=== PATIENT | male | born 1960 | race Caucasian/White ===

== ENCOUNTER 2016-11-17 05:47 | Inpatient (IN) | payer OTHER ==
[2016-11-17] VITALS (117 sets, daily range): BP systolic 111–138; BP diastolic 61–86; PULSE 71–100; TEMP 98.4–100.5; O2SAT 85–100
[~2016-11-17] VITALS: Ht 180.3 cm; Wt 118.4 kg
[~2016-11-17 05:47] MED LIST: ALLOPURINOL100 MG PO; ASPIRIN E.C. 8181 MG PO; CARAFATE 1GM1 G PO; COLACE 100100 MG/CAP PO; CRESTOR20 MG PO; DEXILANT60 MG PO; EFFIENT10 MG PO; LEVAQUIN 5500 MG/TA1 PO; LIP PO; LIPITOR 80MG80 MG PO; LOPRESSOR 225 MG/TAB PO; LOPRESSOR 550 MG/TAB PO; METOPROLOL TART25 MG PO; METOPROLOL25 MG PO; NIACIN250 MG PO; NORCO 325 MG-51 TAB PO; PERCOCET 325 MG1 TA2 PO; PERCOCET 325 MG1 TAB PO; PLAVIX300 MG PO; PREVACID 30MG30 M1 PO; PRINIVIL5 MG PO; PYRIDIUM200 M1 PO; RANEXA1000 MG PO; SIMVASTATIN40 MG PO; TORADOL 10MG TA10 MG PO; UNABLE; ZANTAC 150150 MG PO; ZOFRAN 4MG T4 MG/TAB PO; ZOFRAN ODT4 MG PO; ZYLOPRIM 100MG100 MG PO; [UNRECOGNIZED DRUG - OTHER]
[2016-11-17 06:24] LABS: HEMATOCRIT 40.4 % (42.0-52.0); HEMOGLOBIN 13.8 g/dl (13.5-18.0); MEAN CELL VOLUME 93 fl (80.0-100.0); MEAN CORPUSCULAR HEMOGLOBIN 32 pg (27.0-31.0); MEAN CORPUSCULAR HGB CONC 34 g/dl (33.0-37.0); MEAN PLATELET VOLUME 9.3 fl (7.4-10.4); PLATELET COUNT 184 K/mm3 (130-400); RED BLOOD COUNT 4.34 M/mm3 (4.20-5.60); REDCELL DISTRIBUTION WIDTH-CV 13.8 % (11.5-14.5); WHITE BLOOD COUNT 4.2 K/mm3 (4.8-10.8)
[2016-11-17 06:27] LABS: ADD PATHOLOGY DIFF REVIEW NO
[2016-11-17] MEDS ORDERED: CIPRO 500MG TA500 MG PO (06:32)
[2016-11-17] MEDS ORDERED: LOTRIMIN45CR TOP (06:36)
[2016-11-17] MEDS ORDERED: VOLTAREN GEL 1%1 TU TP (06:36)
[2016-11-17] MEDS ORDERED: BACTROBAN22 TOP (06:38)
[2016-11-17 06:47] LABS: ADJUSTED CALCIUM 9.1 mg/dL (8.4-10.2); ALANINE AMINOTRANSFERASE 45 U/L (21-72); ALBUMIN 4.2 gm/dL (3.5-5.0); ALKALINE PHOSPHATASE 64 U/L (50-136); ANION GAP 13 mmol/L (7-16); BILIRUBIN,TOTAL 0.7 mg/dL (0.0-1.0); BLOOD UREA NITROGEN 22 mg/dL (9-20); C-REACTIVE PROTEIN 1.6 mg/dL (0.0-0.9); CALCIUM 9.3 mg/dL (8.4-10.2); CARBON DIOXIDE 20 mmol/L (22-30); CHLORIDE 104 mmol/L (98-107); CREATININE, serum 1.21 mg/dL (0.66-1.25); GLUCOSE 107 mg/dL (74-106); LIPASE 99 U/L (23-300); POTASSIUM 3.9 mmol/L (3.4-5.0); SODIUM 138 mmol/L (137-145); TOTAL PROTEIN 7.5 gm/dL (6.4-8.2)
[2016-11-17 06:56] LABS: B-TYPE NATRIURETIC PEPTIDE 151 pg/mL (0-125); TROPONIN-I < 0.012 ng/mL (0.000-0.034)
[2016-11-17 07:36] LABS: BAND 7 % (0-10); NEUTROPHILS 72 % (42.0-75.2); PLATELET ESTIMATE NORMAL (NORMAL); TOTAL CELLS COUNTED 100
[2016-11-17 07:41] LABS: PH 5 (5-8); SQUAMOUS EPITHELIAL 0-2 /hpf; URINE APPEARANCE Clear; URINE BACTERIA Occasional /hpf; URINE BILIRUBIN Negative (NEGATIVE); URINE BLOOD Negative (NEGATIVE); URINE COLOR Amber; URINE GLUCOSE Negative (NEGATIVE); URINE KETONE Negative (NEGATIVE); URINE UROBILINOGEN Negative (NEGATIVE)
[2016-11-17 07:44] LABS: URINE WBC >50 /hpf
[2016-11-17 08:18] LABS: ERYTHROCYTE SEDIMENTATION RATE 11 mm/hr (0-30)
[2016-11-18 00:31] VITALS: BP 109/62; PULSE 73
[2016-11-18 02:58] VITALS: BP 95/46; PULSE 73; TEMP 98.9
[2016-11-18 08:38] VITALS: BP 116/75; PULSE 71; TEMP 98.3
[2016-11-18 12:12] VITALS: BP 125/77; PULSE 71; TEMP 98
[2016-11-18] MEDS ORDERED: BACTRIM DS 8001 TAB PO (12:51)
[2016-11-18] MEDS ORDERED: LIPITOR 80MG80 MG PO (12:52)
== END 2016-11-18 14:01 | disposition home or self-care (01) | DRG 281 ==
LOC: COL.ER 05:47 → MEDICAL 09:51 → EDBEDREQTM 09:58 → EDBEDREQ 09:58 → ICU 17:31 → MEDICAL 20:42
PROVIDERS: Emergency Medicine
PROC: B2111ZZ Fluoroscopy of Multiple Coronary Arteries using Low Osmolar Contrast (ICD-10-PCS; principal; 2016-11-17)
PROC: B2151ZZ Fluoroscopy of Left Heart using Low Osmolar Contrast (ICD-10-PCS; 2016-11-17)
DX: I21.4 Non-ST elevation (NSTEMI) myocardial infarction (principal); N39.0 Urinary tract infection, site not specified; I25.10 Atherosclerotic heart disease of native coronary artery without angina pectoris; Z95.5 Presence of coronary angioplasty implant and graft; Z85.828 Personal history of other malignant neoplasm of skin; I10 Essential (primary) hypertension
CPT/HCPCS: 99223-AI; 99239; C1725; C1760; C1769; C1874; C1887; J0583; J0696; J1650; J2250; J2270; J2405; J3010; J7030; Q9967

== ENCOUNTER 2018-04-23 20:55 | Emergency (ER) | payer SELFPAY ==
[~2018-04-23] VITALS: Ht 180.3 cm; Wt 109.1 kg
[~2018-04-23 20:55] MED LIST changes: +BACTRIM DS 8001 TAB PO; +BACTROBAN22 TOP; +CIPRO 500MG TA500 MG PO; +LOTRIMIN45CR TOP; +VOLTAREN GEL 1%1 TU TP
[2018-04-23 21:01] VITALS: TEMP 97.8
[2018-04-23 21:44] VITALS: BP 136/77; PULSE 88
[2018-04-23 22:52] LABS: TRICYCLIC ANTIDEPRESS URINE NEGATIVE
== END 2018-04-23 21:59 | disposition home or self-care (01) ==
LOC: COL.ER 20:55
PROVIDERS: Emergency Medicine
DX: Z04.1 Encounter for examination and observation following transport accident (principal); Z79.82 Long term (current) use of aspirin

== ENCOUNTER 2018-07-18 20:40 | Inpatient (IN) | payer OTHER ==
[~2018-07-18] VITALS: Ht 180.3 cm; Wt 111.4 kg
[2018-07-19] VITALS (28 sets, daily range): BP systolic 117; BP diastolic 81; PULSE 69; O2SAT 93–98
--- NOTE | 2018-07-19 15:29 | NUR ---
SW met with the patient to discuss discharge plan. The patient lives in [place] with his , Cassidy. He reports independence with ADLs and does not use any DME. The patient's PCP is Dr. Kailee Garvin and he receives his medications either from the [facility] or by [facility] mail order. He reports no difficulties obtaining his meds. The patient does not have advanced directives and he was not interested in completing them at this time. The patient plans to return home with his upon discharge. No additional needs at this time.
[2018-07-19 16:16] LABS: BASO % 0.4 % (0.0-2.0); EOS # 0.2 (0.0-0.7); EOS % 2.9 % (0-4.0); GRAN # 3.7 (1.4-6.5); GRAN % 51.2 % (42.2-75.2); HEMATOCRIT 42.4 % (42.0-52.0); HEMOGLOBIN 14.4 g/dl (13.5-18.0); LYMPH # 2.3 (1.2-3.4); MEAN CELL VOLUME 94 fl (80.0-100.0); MEAN CORPUSCULAR HEMOGLOBIN 32 pg (27.0-31.0); MEAN CORPUSCULAR HGB CONC 34 g/dl (33.0-37.0); PLATELET COUNT 223 K/mm3 (130-400); RED BLOOD COUNT 4.53 M/mm3 (4.20-5.60); REDCELL DISTRIBUTION WIDTH-CV 13.2 % (11.5-14.5)
[2018-07-19 16:16] LABS: BASO % 0.3 % (0.0-2.0); EOS # 0.2 (0.0-0.7); EOS % 2.3 % (0-4.0); GRAN # 5.9 (1.4-6.5); GRAN % 66.3 % (42.2-75.2); HEMATOCRIT 47.2 % (42.0-52.0); HEMOGLOBIN 16.1 g/dl (13.5-18.0); LYMPH # 1.7 (1.2-3.4); LYMPH % 18.7 % (20.0-51.0); MEAN CELL VOLUME 95 fl (80.0-100.0); MEAN CORPUSCULAR HEMOGLOBIN 32 pg (27.0-31.0); MEAN CORPUSCULAR HGB CONC 34 g/dl (33.0-37.0); MEAN PLATELET VOLUME 9.3 fl (7.4-10.4); MONO % 11.8 % (1.7-9.3); PLATELET COUNT 233 K/mm3 (130-400); RED BLOOD COUNT 4.97 M/mm3 (4.20-5.60)
[2018-07-19 16:58] LABS: CALCIUM 9.3 mg/dL (8.4-10.2); CHOLESTEROL RISK RATIO 5.8; CREATININE, serum 1.11 mg/dL (0.66-1.25)
[2018-07-19 16:59] LABS: TROPONIN-I 6 HR POST INITIAL 0.045 ng/mL (0.000-0.034)
[2018-07-19 17:00] LABS: ALBUMIN 4.5 gm/dL (3.5-5.0); BILIRUBIN,TOTAL 0.6 mg/dL (0.0-1.0); CALCIUM 9.8 mg/dL (8.4-10.2); CREATININE, serum 1.31 mg/dL (0.66-1.25); TOTAL PROTEIN 8.6 gm/dL (6.4-8.2); TROPONIN-I 0.062 ng/mL (0.000-0.035)
[2018-07-20] MEDS ORDERED: TYLENOL 325MG325 MG PO (17:10)
[2018-07-20] MEDS ORDERED: PRIL40 PO (17:11)
== END 2018-07-19 14:50 | disposition home or self-care (01) | DRG 282 ==
LOC: COL.ER 20:40 → ICU 07-19 02:50
PROVIDERS: Emergency Medicine
PROC: 4A023N7 Measurement of Cardiac Sampling and Pressure, Left Heart, Percutaneous Approach (ICD-10-PCS; principal; 2018-07-19)
PROC: B2111ZZ Fluoroscopy of Multiple Coronary Arteries using Low Osmolar Contrast (ICD-10-PCS; principal; 2018-07-19)
PROC: B2151ZZ Fluoroscopy of Left Heart using Low Osmolar Contrast (ICD-10-PCS; 2018-07-19)
DX: I21.4 Non-ST elevation (NSTEMI) myocardial infarction (principal); I25.119 Atherosclerotic heart disease of native coronary artery with unspecified angina pectoris; I10 Essential (primary) hypertension; Z95.5 Presence of coronary angioplasty implant and graft; E78.5 Hyperlipidemia, unspecified; K21.9 Gastro-esophageal reflux disease without esophagitis; Z88.8 Allergy status to other drugs, medicaments and biological substances; Z82.49 Family history of ischemic heart disease and other diseases of the circulatory system; J06.9 Acute upper respiratory infection, unspecified
CPT/HCPCS: C1760; C1894

== ENCOUNTER 2018-08-16 08:34 | Day surgery (SDC) | payer OTHER ==
[~2018-08-16] VITALS: Ht 180.3 cm; Wt 107.4 kg
[2018-08-16] VITALS (10 sets, daily range): BP systolic 103–137; BP diastolic 68–98; PULSE 62–73
[~2018-08-16 08:34] MED LIST changes: +PRIL40 PO; +TYLENOL 325MG325 MG PO
[2018-08-16] MEDS ORDERED: NEXIUM 40MG40 MG PO (09:01)
[2018-08-16] MEDS ORDERED: XARELTO20 MG PO (09:02)
[2018-08-16 10:10] LABS: HEMATOCRIT 40.4 % (42.0-52.0); HEMOGLOBIN 13.8 g/dl (13.5-18.0); MEAN CELL VOLUME 94 fl (80.0-100.0); MEAN CORPUSCULAR HEMOGLOBIN 32 pg (27.0-31.0); MEAN CORPUSCULAR HGB CONC 34 g/dl (33.0-37.0); MEAN PLATELET VOLUME 9.1 fl (7.4-10.4); PLATELET COUNT 186 K/mm3 (130-400); RED BLOOD COUNT 4.29 M/mm3 (4.20-5.60); REDCELL DISTRIBUTION WIDTH-CV 13.1 % (11.5-14.5)
[2018-08-16 10:18] LABS: INR 1.1 (0.8-3.0); PROTHROMBIN TIME 12.6 SECONDS (9.7-12.8)
[2018-08-16 10:29] LABS: CALCIUM 9.2 mg/dL (8.4-10.2); CREATININE, serum 1.2 (0.66-1.25); POTASSIUM 4.3 mmol/L (3.4-5.0)
--- NOTE | 2018-08-16 10:51 | NUR ---
ALL SEDATION MEDICATIONS WILL BE GIVEN DURING PROCEDURE WITH VERBAL ORDER FROM MD. SEE MERGE REPORT FOR FENCE ERECTOR SUPERVISOR TIME. SEE MERGE FOR RASS AND MODERATE SEDATION ASSESSMENTS DURING AND POST PROCEDURE.
--- NOTE | 2018-08-16 11:35 | NUR ---
PT BACK TO ROOM 11 POST CARDIAC CATH. VSS AND AX0X3. LEFT FEMORAL SITE C/D/I AND SOFT ON PALPATION. ANGIO-SEAL PLACED. PULSES READILY PALPABLE. PT DENIES PAIN AT THIS TIME. RESTING COMFORTABLY IN BED.
--- NOTE | 2018-08-16 14:03 | NUR ---
PT LEFT FEMORAL SITE REMAINED C/D/I POST CARDIAC CATH. VSS AND AMBULATED TWICE AROUND NURSES STATION WITHOUT ISSUE. TOLERATING FLUIDS PO AND VOIDED ONCE. 20G REMOVED FROM RIGHT HAND AND DISCHARGE INSTRUCTIONS REVIEWED AND SIGNED. PT WHEELED OUT SAFELY BY STAFF TO ER ENTRANCE WHERE RIDE WAS WAITING TO PICK HIM UP.
== END 2018-08-16 14:03 | disposition home or self-care (01) ==
LOC: COL.CAR 08:34
PROVIDERS: Internal Medicine Interventional Cardiology
DX: I25.10 Atherosclerotic heart disease of native coronary artery without angina pectoris (principal); E78.5 Hyperlipidemia, unspecified; T82.867A Thrombosis due to cardiac prosthetic devices, implants and grafts, initial encounter; I87.2 Venous insufficiency (chronic) (peripheral); R60.0 Localized edema; M79.605 Pain in left leg; M79.604 Pain in right leg; Z95.5 Presence of coronary angioplasty implant and graft; Z79.01 Long term (current) use of anticoagulants; Z79.82 Long term (current) use of aspirin; Z82.49 Family history of ischemic heart disease and other diseases of the circulatory system; Z88.4 Allergy status to anesthetic agent
CPT/HCPCS: C1760; C1894; J1644; J2250; J3010; Q9967

== ENCOUNTER → 2019-07-07 | Outpatient (CLI) | payer OTHER ==
[~2019-07-07] MED LIST changes: +NEXIUM 40MG40 MG PO; +XARELTO20 MG PO
== END ==
LOC: COL.RAD 07-02 12:45
DX: R19.09 Other intra-abdominal and pelvic swelling, mass and lump (principal); R59.0 Localized enlarged lymph nodes

== ENCOUNTER 2019-11-07 03:33 | Observation (INO) | payer OTHER ==
[2019-11-07] VITALS (10 sets, daily range): BP systolic 100–142; BP diastolic 47–91; PULSE 59–67; TEMP 97.4–98.4
[~2019-11-07] VITALS: Ht 180.3 cm; Wt 113.0 kg
[2019-11-07 04:20] LABS: BASO % 0.4 % (0.0-2.0); EOS # 0.2 (0.0-0.7); EOS % 3.6 % (0-4.0); GRAN % 53.8 % (42.2-75.2); HEMATOCRIT 40.6 % (42.0-52.0); HEMOGLOBIN 13.6 g/dl (13.5-18.0); LYMPH # 1.8 (1.2-3.4); LYMPH % 32.2 % (20.0-51.0); MEAN CELL VOLUME 97 fl (80.0-100.0); MEAN CORPUSCULAR HEMOGLOBIN 33 pg (27.0-31.0); MEAN CORPUSCULAR HGB CONC 34 g/dl (33.0-37.0); MEAN PLATELET VOLUME 9.4 fl (7.4-10.4); MONO # 0.5 (0.1-0.6); MONO % 9.5 % (1.7-9.3); PLATELET COUNT 213 K/mm3 (130-400); RED BLOOD COUNT 4.18 M/mm3 (4.20-5.60); REDCELL DISTRIBUTION WIDTH-CV 13.4 % (11.5-14.5)
[2019-11-07 04:29] LABS: BILIRUBIN,TOTAL 0.7 mg/dL (0.0-1.0); CALCIUM 9.3 mg/dL (8.4-10.2); CREATININE, serum 1.25 (0.66-1.25); POTASSIUM 3.5 mmol/L (3.4-5.0); TOTAL PROTEIN 7.3 gm/dL (6.4-8.2)
[2019-11-07] MEDS ORDERED: XARELTO2.5 MG PO (05:59)
--- NOTE | 2019-11-07 06:10 | NUR ---
ARRIVES TO FLOOR FROM ED PER W/C. IS ALERT AND ORIENTED X4.
--- NOTE | 2019-11-07 06:23 | NUR ---
PT ARRIVED TO THE FLOOR VIA WHEELCHAIR. PT STATED HE IS HAVING SOME PAIN BUT IT'S BETTER THAN IT WAS. PT HAS HIS CALL LIGHT WITHIN REACH AND HAS NO OTHER CONCERNS AT THIS TIME.
[2019-11-07 06:49] LABS: COLLECTION METHOD CLEAN CATCH
[2019-11-07 07:04] LABS: MUCOUS Present /lpf; PH 5 (5-8); SQUAMOUS EPITHELIAL 0-2 /hpf; URINE APPEARANCE Cloudy; URINE BACTERIA None Seen /hpf; URINE BILIRUBIN Negative (NEGATIVE); URINE BLOOD 3+ (NEGATIVE); URINE COLOR Amber; URINE GLUCOSE Negative (NEGATIVE); URINE KETONE Negative (NEGATIVE); URINE LEUKOCYTE ESTERASE Negative (NEGATIVE); URINE NITRATE Negative (NEGATIVE); URINE PROTEIN(semi-quant) 1+ (NEGATIVE); URINE RBC >50 /hpf; URINE UROBILINOGEN Negative (NEGATIVE)
--- NOTE | 2019-11-07 09:00 | NUR ---
Patient wanting to rest this am. Dr. Mahajan rounded. Consent obtained.
--- NOTE | 2019-11-07 09:24 | NUR ---
Solar Tech met with patient to discuss discharge planning. Patient lives alone in [place] and states he has a daughter, Fernie (ph#[phone]). Patient sees Dr. Garvin for primary care and obtains his medications at [facility] with no difficulties. Patient does not use any DME and is independent with ADLS. Patient does not have Advance Directives and was not interested in setting them up at this time. Patient plans to return home upon discharge. No needs identified at this time.
--- NOTE | 2019-11-07 10:56 | NUR ---
Patient to the OR with Reza, I offered Hygiene. He refused at this time.
--- NOTE | 2019-11-07 16:36 | NUR ---
GERTRUDE collaborated with RNCourtney who advised patient may not have a ride home. GERTRUDE met with patient who states he contacted a friend who will come get him. GERTRUDE notified Courtney. No additional needs at this time.
--- NOTE | 2019-11-07 16:45 | NUR ---
Patient ready for discharge. Patient friend taking him home. He recovered well post op. He has voided x3. Tolerated diet. He has denied pain. Iv DC. All discharge paperwork reviewed-Script for jackson sent with patient, medication safety & home med list reviewed. activity & diet restrictions reviewed. Patient wheeled out with all belongings.
== END 2019-11-07 16:45 | disposition home or self-care (01) ==
LOC: COL.ER 03:33 → SURG 05:24
PROVIDERS: Emergency Medicine; ADMIT Urology
DX: N13.8 Other obstructive and reflux uropathy (principal); N20.2 Calculus of kidney with calculus of ureter; K21.9 Gastro-esophageal reflux disease without esophagitis; I10 Essential (primary) hypertension; E78.5 Hyperlipidemia, unspecified; I25.10 Atherosclerotic heart disease of native coronary artery without angina pectoris; Z95.5 Presence of coronary angioplasty implant and graft; Z85.828 Personal history of other malignant neoplasm of skin; Z95.828 Presence of other vascular implants and grafts
CPT/HCPCS: C1769; C2617; G0378; J0690; J1885; J2405; J2704; J3010; J7030; J7120; Q9967

== ENCOUNTER → 2020-03-09 | Outpatient (CLI) | payer OTHER ==
[~2020-03-09] MED LIST changes: +XARELTO2.5 MG PO
== END ==
LOC: ZCOL.LAB 16:24
DX: R19.7 Diarrhea, unspecified (principal); R53.83 Other fatigue; R52 Pain, unspecified; Z20.828 Contact with and (suspected) exposure to other viral communicable diseases

== ENCOUNTER → 2020-04-22 | Day surgery (SDC) | payer OTHER ==
[~2020-04-22] VITALS: Ht 180.3 cm; Wt 113.6 kg
[~2020-04-22] MED LIST changes: +LEXAPRO 10MG10 MG PO; +ROXICODONE 55 MG/TAB PO; +TOPROL XL100 MG PO
[2020-04-22 11:38] VITALS: BP 151/90; PULSE 87; TEMP 98.5
[2020-04-22 16:51] VITALS: TEMP 98.2
[2020-04-22 17:00] VITALS: BP 140/94; PULSE 93
[2020-04-22 17:30] VITALS: BP 139/85; PULSE 95
--- NOTE | 2020-04-22 18:24 | NUR ---
PT RETURNED FROM PACU PER CART INTO BAY#7. A/OX AND SLEEPY. LUNGS CLEAR, HRR, BOWEL SOUNDS AUDIBLE. PT RATES PAIN AT A 4 ON A 0-10 SCALE. PT REQUESTS TO GET UP TO THE BATHROOM. PT SATED HE HAD A DRIBBLE OF URINE. DR WARE AWARE. WILL CONT TO MONITOR.
--- NOTE | 2020-04-22 18:33 | NUR ---
PT TOLERATING CRACKERS AND PEPSI. DENIES NAUSEA AND VOMITING. LAP INSERTION SITES ARE CLEAN, DRY AN INTACT. WILL MONITOR
--- NOTE | 2020-04-22 18:40 | NUR ---
PT DENIES PAIN OR NAUSEA. IV DC'D WITHOUT DIFFICULTY. ABD INSERION SITES ARE CLEARN DRY AND INTACT. DISMISSAL INSTRUCTIONS GIVEN, PT VOICES UNDERSTANDING. PT STATES FEELING BETTER AFTER DOSE OF OXYCODONE PO GIVEN. PT WHEELED TO ER ENTRANCE. BROTHER DRIVING FAMILY CAR.
== END ==
LOC: SDCO 10:04
DX: K40.20 Bilateral inguinal hernia, without obstruction or gangrene, not specified as recurrent (principal); D12.3 Benign neoplasm of transverse colon; R19.7 Diarrhea, unspecified; Z79.82 Long term (current) use of aspirin; Z79.01 Long term (current) use of anticoagulants; I25.2 Old myocardial infarction; K21.9 Gastro-esophageal reflux disease without esophagitis; Z85.828 Personal history of other malignant neoplasm of skin; I25.10 Atherosclerotic heart disease of native coronary artery without angina pectoris; E78.5 Hyperlipidemia, unspecified; I10 Essential (primary) hypertension; G47.33 Obstructive sleep apnea (adult) (pediatric); Z95.5 Presence of coronary angioplasty implant and graft; Z20.828 Contact with and (suspected) exposure to other viral communicable diseases
CPT/HCPCS: A4314; C1781; J0690; J1100; J2405; J2704; J2765; J3010; J7120

== ENCOUNTER 2020-10-17 22:50 | Emergency (ER) | payer OTHER ==
[~2020-10-17] VITALS: Ht 180.3 cm; Wt 113.6 kg
[2020-10-17 23:00] VITALS: TEMP 98
[2020-10-17 23:55] LABS: BASO % 0.2 % (0.0-2.0); EOS # 0.3 (0.0-0.7); GRAN # 3.1 (1.4-6.5); HEMATOCRIT 41.8 % (42.0-52.0); HEMOGLOBIN 14.1 g/dl (13.5-18.0); LYMPH # 2.3 (1.2-3.4); LYMPH % 34.6 % (20.0-51.0); MEAN CELL VOLUME 93 fl (80.0-100.0); MEAN CORPUSCULAR HEMOGLOBIN 32 pg (27.0-31.0); MEAN CORPUSCULAR HGB CONC 34 g/dl (33.0-37.0); MEAN PLATELET VOLUME 9.2 fl (7.4-10.4); MONO # 0.8 (0.1-0.6); MONO % 12.9 % (1.7-9.3); PLATELET COUNT 203 K/mm3 (130-400); RED BLOOD COUNT 4.48 M/mm3 (4.20-5.60); REDCELL DISTRIBUTION WIDTH-CV 13.4 % (11.5-14.5)
[2020-10-18 00:03] LABS: INR 1.2 (0.8-3.0); PROTHROMBIN TIME 12.8 SECONDS (9.7-12.8)
[2020-10-18 00:05] LABS: PARTIAL THROMBOPLASTIN TIME 27.7 SECONDS (26.0-37.0)
[2020-10-18 00:16] LABS: ALANINE AMINOTRANSFERASE 37 U/L (4-49); ALBUMIN 3.8 gm/dL (3.5-5.0); ALKALINE PHOSPHATASE 69 U/L (50-136); ANION GAP 5 mmol/L (7-16); AST,SGOT 30 U/L (15-37); BILIRUBIN,TOTAL 0.5 mg/dL (0.0-1.0); BLOOD UREA NITROGEN 21 mg/dL (9-20); CALCIUM 9.3 mg/dL (8.4-10.2); CARBON DIOXIDE 25 mmol/L (22-30); CHLORIDE 107 mmol/L (98-107); CREATININE, serum 1.08 (0.66-1.25); GLUCOSE 93 mg/dL (74-106); POTASSIUM 3.7 mmol/L (3.4-5.0); SODIUM 137 mmol/L (137-145)
[2020-10-18 00:28] LABS: TROPONIN-I < 0.012 ng/mL (0.000-0.035)
[2020-10-18 01:33] VITALS: BP 145/86; PULSE 71
== END 2020-10-18 01:35 | disposition home or self-care (01) ==
LOC: COL.ER 22:50
PROVIDERS: Personal Emergency Response Attendant
DX: R07.9 Chest pain, unspecified (principal); I25.2 Old myocardial infarction; Z95.5 Presence of coronary angioplasty implant and graft; Z79.01 Long term (current) use of anticoagulants; Z79.82 Long term (current) use of aspirin
CPT/HCPCS: J2270; J2550

== ENCOUNTER 2020-11-30 07:17 | Day surgery (SDC) | payer OTHER ==
[~2020-11-30] VITALS: Ht 180.3 cm; Wt 116.0 kg
[2020-11-30] VITALS (10 sets, daily range): BP systolic 118–147; BP diastolic 33–88; PULSE 34–72; TEMP 97.7
[2020-11-30 08:05] LABS: HEMATOCRIT 42.4 % (42.0-52.0); HEMOGLOBIN 14.3 g/dl (13.5-18.0); MEAN CELL VOLUME 94 fl (80.0-100.0); MEAN CORPUSCULAR HEMOGLOBIN 32 pg (27.0-31.0); MEAN CORPUSCULAR HGB CONC 34 g/dl (33.0-37.0); MEAN PLATELET VOLUME 9.4 fl (7.4-10.4); PLATELET COUNT 200 K/mm3 (130-400); RED BLOOD COUNT 4.51 M/mm3 (4.20-5.60); REDCELL DISTRIBUTION WIDTH-CV 13.5 % (11.5-14.5)
[2020-11-30 08:16] LABS: CALCIUM 9.1 mg/dL (8.4-10.2); CREATININE, serum 0.99 (0.66-1.25)
[2020-11-30 08:17] LABS: INR 1.1 (0.8-3.0); PROTHROMBIN TIME 11.8 SECONDS (9.7-12.8)
[2020-11-30 08:20] LABS: PARTIAL THROMBOPLASTIN TIME 29.3 SECONDS (26.0-37.0)
--- NOTE | 2020-11-30 09:38 | NUR ---
SEE MERGE DOCUMENTATION FOR MEDICATION ADMINISTRATION TIMES AND INTRA/POST PROCEDURE SEDATION ASSESSMENTS. RIGHT HAND BARBEAU TEST POSITIVE.
--- NOTE | 2020-11-30 10:30 | NUR ---
pt returned to eu 11 via bed from yard laborer, pt is alert and orienated x3. radial band is intact. call light in reach. declines drink or food at t his time, sister in room.
--- NOTE | 2020-11-30 11:30 | NUR ---
pt requests snack only, rests in bed, no changes from assessment
--- NOTE | 2020-11-30 12:30 | NUR ---
band released slowly, 2cc every 5-10 min with no bleeding or swelling, bandaid over site with coban for support.
--- NOTE | 2020-11-30 12:50 | NUR ---
pt sat on side of bed, tolerates well. discharge inst. given on activity, followup, site care and appt. with verbal understanding. int d'cd intact. pt up in room dressed, discharged via w/c to car with sister at 1305
== END 2020-11-30 13:05 | disposition home or self-care (01) ==
LOC: COL.CAR 07:17
PROVIDERS: Internal Medicine Interventional Cardiology
DX: I25.10 Atherosclerotic heart disease of native coronary artery without angina pectoris (principal); G47.33 Obstructive sleep apnea (adult) (pediatric); R94.39 Abnormal result of other cardiovascular function study; I10 Essential (primary) hypertension; E78.5 Hyperlipidemia, unspecified; Z79.82 Long term (current) use of aspirin; Z95.1 Presence of aortocoronary bypass graft; Z79.899 Other long term (current) drug therapy; Z20.822 Contact with and (suspected) exposure to COVID-19
CPT/HCPCS: C1769; J1644; J2250; J3010; Q9967

== ENCOUNTER → 2021-04-04 | Outpatient (CLI) | payer OTHER ==
[2021-04-04 15:59] LABS: CALCIUM 9.3 mg/dL (8.4-10.2); CREATININE, serum 1.28 mg/dL (0.72-1.25); POTASSIUM 4.7 mmol/L (3.5-4.5)
== END ==
LOC: ZCOL.LAB 14:30
PROVIDERS: Internal Medicine Interventional Cardiology
DX: I70.213 Atherosclerosis of native arteries of extremities with intermittent claudication, bilateral legs (principal)

== ENCOUNTER → 2021-04-26 | Outpatient (CLI) | payer OTHER ==
[2021-04-26 13:15] LABS: ERYTHROCYTE SEDIMENTATION RATE 22 mm/hr (0-30); HEMATOCRIT 41.2 % (42.0-52.0); HEMOGLOBIN 13.5 g/dl (13.5-18.0); MEAN CELL VOLUME 94 fl (80.0-100.0); MEAN CORPUSCULAR HEMOGLOBIN 31 pg (27.0-31.0); MEAN CORPUSCULAR HGB CONC 33 g/dl (33.0-37.0); MEAN PLATELET VOLUME 9.6 fl (7.4-10.4); PLATELET COUNT 272 K/mm3 (130-400); REDCELL DISTRIBUTION WIDTH-CV 14.3 % (11.5-14.5)
[2021-04-26 13:19] LABS: CALCIUM 9.1 mg/dL (8.4-10.2); CREATININE, serum 1.37 mg/dL (0.72-1.25)
[2021-04-26 13:20] LABS: C-REACTIVE PROTEIN 0.48 mg/dL (0.00-0.50); THYROID STIMULATING HORMONE 6.27 uIU/mL (0.350-4.940)
[2021-04-26 13:35] LABS: TROPONIN-I 6.079 ng/mL (0.00-0.033)
== END ==
LOC: ZCOL.LAB 12:53
PROVIDERS: Internal Medicine Interventional Cardiology
DX: I20.9 Angina pectoris, unspecified (principal); R06.02 Shortness of breath; R77.8 Other specified abnormalities of plasma proteins

== ENCOUNTER → 2021-04-27 | Outpatient (CLI) | payer OTHER | LOC: ZCOL.LAB 12:41 | DX: I20.9 Angina pectoris, unspecified (principal); R77.8 Other specified abnormalities of plasma proteins; R06.02 Shortness of breath ==

== ENCOUNTER 2021-07-12 14:55 | Observation (INO) | payer OTHER ==
[~2021-07-12] VITALS: Ht 180.3 cm; Wt 111.0 kg
[2021-07-12 15:24] VITALS: BP 120/82; PULSE 81; TEMP 98.2
--- NOTE | 2021-07-12 16:00 | NUR ---
PT ARRIVED TO FLOOR, VITALS OBTAINED, PT REPORTS CHEST PAIN IN STERNUM RADIATING TO R SIDE WITH AMBULATION BUT NOT AT REST, PT ASSESSMENT PERFORMED, TELE ATTACHED, DIET ORDERED, IV STARTED, MED REC COMPLETED, NO OTHER NEEDS
[2021-07-12 16:12] LABS: BASO % 0.2 % (0.0-2.0); EOS # 0.1 K/mm3 (0.0-0.7); EOS % 2.2 % (0.0-4.0); GRAN # 2.3 K/mm3 (1.4-6.5); GRAN % 50.8 % (42.2-75.2); HEMATOCRIT 40.8 % (42.0-52.0); HEMOGLOBIN 13.8 g/dl (13.5-18.0); LYMPH # 1.7 K/mm3 (1.2-3.4); LYMPH % 36.9 % (20.0-51.0); MEAN CELL VOLUME 91 fl (80.0-100.0); MEAN CORPUSCULAR HEMOGLOBIN 31 pg (27-31); MEAN CORPUSCULAR HGB CONC 34 g/dl (33.0-37.0); MEAN PLATELET VOLUME 9.2 fl (7.4-10.4); MONO # 0.4 K/mm3 (0.1-0.6); MONO % 9.5 % (1.7-9.3); PLATELET COUNT 199 K/mm3 (130-400); RED BLOOD COUNT 4.49 M/mm3 (4.20-5.60); REDCELL DISTRIBUTION WIDTH-CV 14.6 % (11.5-14.5)
[2021-07-12] MEDS ORDERED: IMDUR 60MG60 MG/TAB PO (16:15)
[2021-07-12] MEDS ORDERED: EFFIENT10 MG PO (16:16)
[2021-07-12] MEDS ORDERED: PLAVIX 75MG TAB75 MG PO (16:16)
[2021-07-12 16:18] LABS: INR 1.2 (0.8-3.0); PROTHROMBIN TIME 13.6 SECONDS (9.7-12.8)
[2021-07-12 16:21] LABS: PARTIAL THROMBOPLASTIN TIME 29.3 SECONDS (26.0-37.0)
[2021-07-12 16:37] LABS: TROPONIN-I 0.697 ng/mL (0.00-0.033)
--- NOTE | 2021-07-12 16:44 | NUR ---
CRITICAL TROPONIN REPORTED TO RAMON SMITH
[2021-07-12 16:53] LABS: CALCIUM 9.1 mg/dL (8.4-10.2); CREATININE, serum 1.17 mg/dL (0.72-1.25); POTASSIUM 3.9 mmol/L (3.5-4.5)
--- NOTE | 2021-07-12 17:28 | NUR ---
PT PLEASANT, AOX4, INDEPENDENT IN ROOM, DENIES PAIN AT THIS TIME, NO OTHER NEEDS
[2021-07-12 19:39] VITALS: BP 135/82; PULSE 77; TEMP 98
--- NOTE | 2021-07-12 22:50 | NUR ---
DR. THOMAS CALLED WITH CRITICAL TROPONIN RESULTS OF 0.587 (WHICH ARE TRENDING DOWN.
[2021-07-13] VITALS (7 sets, daily range): BP systolic 103–132; BP diastolic 61–82; PULSE 67–74; TEMP 97.6–98.1
--- NOTE | 2021-07-13 04:40 | NUR ---
ASSESSMENT COMPLETE FOR THIS SHIFT. PT RESTING IN BED TALKING ON THE PHONE WITH A FAMILY FRIEND. PT DENIED PALPITATIONS N,V,D OR DIZZINESS. PT COMPLAINED OF SOME RIGHT SIDED CHEST PAIN AND SOB WITH AMBULATION, WHICH QUICKLY RESOLVED ONCE HE WAS BACK IN BED. WILL CONTINUE TO MONITOR. PT EXPRESSED NO OTHER NEEDS AT THIS TIME. CALL LIGHT WITHIN REACH.
--- NOTE | 2021-07-13 09:05 | NUR ---
GERTRUDE met with the patient to discuss discharge plan. The patient lives alone in [place]. He reports independence with ADLs and does not have any DME. The patient's PCP is Dr. Kailee Garvin and he receives his medications from [facility] at [facility]. He reports no difficulties obtaining his meds. The patient does not have a DPOA-HC in EMR, but he states that he does have one completed and that he designated his daughter, Fernie Mendoza (ph#[phone]). Fernie lives in [place]. He states that he is not and that Fernie is his only child. The patient states that he has the document at home and that Dr. Garvin's office should have a copy. GERTRUDE attempted to contact Yvrose, medical case manager, at [facility] to request a copy. GERTRUDE left her a voicemail. The patient plans on returning home upon discharge. He states that a sibling will transport him home. No additional needs at this time. *Discharge plan: home*
--- NOTE | 2021-07-13 09:46 | NUR ---
Initial visit; Patient thanked Shower Screen Installer for offering spiritual care. Patient declined further visit.
--- NOTE | 2021-07-13 09:46 | NUR ---
Assessment completed, alert/oriented, vital signs stable, denies chest pains this morning, he did however state he had some right sided chest pains that radiated to his back during the night, Troponin up slightly this morning and I have notified Cardiology, heart RRR/ SR on tele, lungs CTA/ no resp.difficulty, right femoral access site dressing C/D/I with no signs of hematoma or bleeding and we can removed dressing later today, patient denies other needs this morning, will continue to monitor
[2021-07-14 04:16] VITALS: BP 121/73; PULSE 67; TEMP 97.5
--- NOTE | 2021-07-14 05:18 | NUR ---
PT HAD UNEVETNFUL NIGHT THIS SHIFT, DENIES CHEST PAIN, N,V,D, CONSTIPATION. VSS. TROPONIN LEVEL PENDING THIS AM. CALL LIGHT WITHIN REACH.
[2021-07-14 07:18] LABS: BASO % 0.4 % (0.0-2.0); EOS # 0.1 K/mm3 (0.0-0.7); EOS % 2.5 % (0.0-4.0); GRAN # 2.9 K/mm3 (1.4-6.5); GRAN % 52.7 % (42.2-75.2); HEMATOCRIT 39.3 % (42.0-52.0); HEMOGLOBIN 13.4 g/dl (13.5-18.0); LYMPH # 1.9 K/mm3 (1.2-3.4); MEAN CELL VOLUME 93 fl (80.0-100.0); MEAN CORPUSCULAR HEMOGLOBIN 32 pg (27-31); MEAN CORPUSCULAR HGB CONC 34 g/dl (33.0-37.0); MEAN PLATELET VOLUME 9.6 fl (7.4-10.4); MONO # 0.5 K/mm3 (0.1-0.6); MONO % 8.7 % (1.7-9.3); PLATELET COUNT 175 K/mm3 (130-400); RED BLOOD COUNT 4.25 M/mm3 (4.20-5.60); REDCELL DISTRIBUTION WIDTH-CV 14.6 % (11.5-14.5)
[2021-07-14 07:23] LABS: CREATININE, serum 1.33 mg/dL (0.72-1.25)
[2021-07-14 07:40] LABS: TROPONIN-I 0.528 ng/mL (0.00-0.033)
--- NOTE | 2021-07-14 08:27 | NUR ---
Rosette, at [facility], reports that they do not have a DPOA-HC on file for the patient.
[2021-07-14 08:30] VITALS: BP 119/70; PULSE 66; TEMP 97.9
--- NOTE | 2021-07-14 08:35 | NUR ---
Assessment completed, alert/oriented, vital signs stable, denies any chest pain / discomfort over night or this morning, heart RRR / SR on tele, Troponin levels have stabalized around 0.5, lungs CTA/ no resp.difficulty noted, reports a good nights sleep, morning meds given, he denies need and we will continue to monitor
[2021-07-14 11:10] VITALS: BP 123/80; PULSE 64; TEMP 97.8
--- NOTE | 2021-07-14 14:12 | NUR ---
Discharge orders discussed with patient and , instructed to follow up with Cardiology as scheduled, instructed to take meds as prescribed, IV and tele removed, he is ambulatory and SUPPLY CONTROLLER escorted them out the door
== END 2021-07-14 14:13 | disposition home or self-care (01) ==
LOC: MEDICAL 14:55
PROVIDERS: Nurse Practitioner; ADMIT Internal Medicine Interventional Cardiology
DX: R07.89 Other chest pain (principal); R06.02 Shortness of breath; I25.10 Atherosclerotic heart disease of native coronary artery without angina pectoris; I10 Essential (primary) hypertension; I44.4 Left anterior fascicular block; I25.2 Old myocardial infarction; I73.9 Peripheral vascular disease, unspecified; Z95.1 Presence of aortocoronary bypass graft; Z79.02 Long term (current) use of antithrombotics/antiplatelets; Z79.899 Other long term (current) drug therapy
CPT/HCPCS: G0378; J7030

== ENCOUNTER → 2022-01-25 | Outpatient (CLI) | payer OTHER ==
[~2022-01-25] MED LIST changes: +IMDUR 60MG60 MG/TAB PO; +PLAVIX 75MG TAB75 MG PO
== END ==
LOC: COL.PUL 12:26
DX: R06.02 Shortness of breath (principal)
CPT/HCPCS: J7674

== ENCOUNTER → 2022-02-14 | Outpatient (CLI) | payer OTHER ==
[2022-02-14 13:14] LABS: CREATININE, serum 1.28 mg/dL (0.72-1.25)
== END ==
LOC: COL.LAB 11:08 → COL.RAD 11:13 → COL.LAB 11:13
PROVIDERS: Nurse Practitioner
DX: I25.10 Atherosclerotic heart disease of native coronary artery without angina pectoris (principal); Z95.1 Presence of aortocoronary bypass graft
CPT/HCPCS: Q9967

== ENCOUNTER 2023-06-25 20:27 | Emergency (ER) | payer MEDICARE, OTHER ==
[~2023-06-25] VITALS: Ht 180.3 cm; Wt 100.0 kg
[~2023-06-25 20:27] MED LIST changes: +CARDENE 20MG CA20 M1 PO; +CARDENE 30MG CA30 M1 PO; +COLCRYS0.6 MG PO; +COREG12.5 MG PO; +CRESTOR40 MG PO; +ELIQUIS 5MG PO; +FLEXERIL 1010 MG/TAB PO; +FLOMAX 0.40.4 MG/CAP PO; +ISOSORBIDE MON120 MG PO; +NITROGLYCE0.4 MG/Ac2 TL; +VANTIN 200200 MG/TAB PO; +VICTOZA6 MG/ML SQ; +VITAMIND3 5000 PO; +ZETIA 10MG TAB10 MG PO; +[UNRECOGNIZED DRUG - OTHER] INJ
[2023-06-25 20:37] VITALS: TEMP 98.5
[2023-06-25 22:20] LABS: COLLECTION METHOD CLEAN CATCH
[2023-06-25 22:23] LABS: BASO % 0.1 % (0.0-2.0); EOS % 0.2 % (0.0-4.0); GRAN # 7.7 K/mm3 (1.4-6.5); GRAN % 77.8 % (42.2-75.2); HEMATOCRIT 45.3 % (42.0-52.0); HEMOGLOBIN 15.9 g/dl (13.5-18.0); LYMPH # 1.4 K/mm3 (1.2-3.4); LYMPH % 14.3 % (20.0-51.0); MEAN CELL VOLUME 94 fl (80.0-100.0); MEAN CORPUSCULAR HEMOGLOBIN 33 pg (27-31); MEAN CORPUSCULAR HGB CONC 35 g/dl (33.0-37.0); MEAN PLATELET VOLUME 9.8 fl (7.4-10.4); MONO # 0.7 K/mm3 (0.1-0.6); MONO % 7.2 % (1.7-9.3); PLATELET COUNT 235 K/mm3 (130-400); REDCELL DISTRIBUTION WIDTH-CV 13.1 % (11.5-14.5)
[2023-06-25] MEDS ORDERED: Morphine 4 MG/ML VIAL IV ONE (22:30)
[2023-06-25] MEDS ORDERED: NS 500 ML IV ONE (22:30)
[2023-06-25] MEDS ORDERED: Ondansetron 4 MG/2 ML VIAL IV ONE (22:30)
[2023-06-25 22:44] LABS: ALBUMIN 4.3 gm/dL (3.4-4.8); CALCIUM 10.1 mg/dL (8.4-10.2); CREATININE, serum 1.62 mg/dL (0.72-1.25); POTASSIUM 5.5 mmol/L (3.5-4.5); TOTAL PROTEIN 9.1 gm/dL (6.2-8.1)
[2023-06-25] MEDS ORDERED: HYDROmorphone 0.5 MG/0.5 ML SYRINGE IV ONE (23:00)
[2023-06-25 23:06] LABS: URINE APPEARANCE Hazy (CLEAR/HAZY); URINE COLOR Yellow (YELLOW); URINE PROTEIN(semi-quant) TRACE (BEGATIVE)
[2023-06-25 23:07] LABS: URINE BACTERIA Rare /hpf (NONE SEEN); URINE BLOOD 3+ (NEGATIVE); URINE GLUCOSE Negative (NEGATIVE); URINE KETONE 2+ (NEGATIVE); URINE NITRATE Negative (NEGATIVE); URINE UROBILINOGEN 0.2 E.U/dL (0.2-1.0)
[2023-06-25 23:16] LABS: C-REACTIVE PROTEIN 0.02 mg/dL (0.00-0.50)
[2023-06-25] MEDS ORDERED: Dextrose 50% Water 25 GM/50 ML SYRINGE IV ONE (23:45)
[2023-06-25] MEDS ORDERED: Insulin Regular Human (NovoLIN R/HumuLIN R) IV ONE (23:45)
[2023-06-26] MEDS ORDERED: Iohexol 300 - 100 ML VIAL IV ONE (00:07)
[2023-06-26] MEDS ORDERED: HYDROmorphone 0.5 MG/0.5 ML SYRINGE IV ONE (00:30)
[2023-06-26 02:00] LABS: CALCIUM 9.5 mg/dL (8.4-10.2); CREATININE, serum 1.51 mg/dL (0.72-1.25); POTASSIUM 3.6 mmol/L (3.5-4.5)
[2023-06-26] MEDS ORDERED: PERCOCET 325 MG1 TA2 PO (02:36)
[2023-06-26] MEDS ORDERED: ZOFRAN ODT4 MG PO (02:39)
[2023-06-26] MEDS ORDERED: Home oxyCODONE/Acetaminophen 5/325 MG #4 TAB/PACK PO ONE (02:45)
[2023-06-26 02:50] VITALS: BP 143/92; PULSE 61
[2023-06-27] MEDS ORDERED: NORVASC 10MG10 MG PO (16:04)
== END 2023-06-26 02:55 | disposition home or self-care (01) ==
LOC: COL.ER 20:27
PROVIDERS: Nurse Practitioner
DX: N20.0 Calculus of kidney (principal); E87.5 Hyperkalemia
CPT/HCPCS: J1170; J1815; J2270; J2405; J7040; Q9967

== ENCOUNTER 2023-11-10 20:49 | Emergency (ER) | payer MEDICARE, OTHER ==
[~2023-11-10] VITALS: Ht 180.3 cm; Wt 90.5 kg
[~2023-11-10 20:49] MED LIST changes: +NORVASC 10MG10 MG PO; +PYRIDIUM 100MG100 MG PO
[2023-11-10] MEDS ORDERED: Morphine 4 MG/ML VIAL IV ONE ×2 (21:30→23:45)
[2023-11-10 21:37] LABS: COLLECTION METHOD CLEAN CATCH
[2023-11-10 21:45] LABS: HEMATOCRIT 37.4 % (42.0-52.0); HEMOGLOBIN 11.7 g/dl (13.5-18.0); MEAN CELL VOLUME 98 fl (80.0-100.0); MEAN CORPUSCULAR HEMOGLOBIN 31 pg (27-31); MEAN CORPUSCULAR HGB CONC 31 g/dl (33.0-37.0); MEAN PLATELET VOLUME 9.4 fl (7.4-10.4); PLATELET COUNT 188 K/mm3 (130-400); REDCELL DISTRIBUTION WIDTH-CV 13.7 % (11.5-14.5)
[2023-11-10 21:51] LABS: URINE APPEARANCE TURBID (CLEAR/HAZY); URINE BLOOD 3+ (NEGATIVE); URINE GLUCOSE TRACE (NEGATIVE); URINE KETONE NEGATIVE (NEGATIVE); URINE NITRATE NEGATIVE (NEGATIVE); URINE PROTEIN(semi-quant) 3+ (NEGATIVE); URINE UROBILINOGEN 0.2 E.U/dL (0.2-1.0)
[2023-11-10 21:54] LABS: URINE COLOR RED (YELLOW)
[2023-11-10 22:02] LABS: AMORPHOUS CRYSTAL PRESENT (NOT PRESENT); MUCOUS PRESENT (NOT PRESENT); SQUAMOUS EPITHELIAL 0-2 /hpf (0-10); URINE BACTERIA MODERATE /hpf (NONE SEEN); URINE RBC >50 /hpf (0-2)
[2023-11-10 22:04] LABS: ALBUMIN 3.2 g/dL (3.4-4.8); BILIRUBIN,TOTAL 0.5 mg/dL (0.2-1.2); CALCIUM 10.1 mg/dL (8.4-10.2); CREATININE, serum 1.29 mg/dL (0.72-1.25); TOTAL PROTEIN 6.9 g/dl (6.2-8.1)
[2023-11-10 22:38] LABS: BAND 2 % (0-10); LYMPHOCYTE 14 % (20.0-51.0); NEUTROPHILS 75 % (42.0-75.2)
[2023-11-10 22:39] LABS: PLATELET ESTIMATE NORMAL (NORMAL)
[2023-11-11] MEDS ORDERED: cefTRIAXone 1 G in Water For Injection,Sterile 10 ML IV ONE (01:45)
[2023-11-11 04:12] VITALS: BP 131/69; PULSE 89; TEMP 97.8
== END 2023-11-11 04:18 | disposition short-term general hospital (02) ==
LOC: COL.ER 20:49
PROVIDERS: Emergency Medicine
DX: N39.0 Urinary tract infection, site not specified (principal); E66.9 Obesity, unspecified; Z96.0 Presence of urogenital implants; Z68.27 Body mass index [BMI] 27.0-27.9, adult
CPT/HCPCS: J0696; J2270